=== PATIENT | male | born 1990 | race African-American/Black ===

== ENCOUNTER 2018-01-22 19:53 | Emergency (ER) | payer BC ==
[2018-01-22 20:40] VITALS: BP 133/88
[2018-01-22] MEDS ORDERED: LIDOCAINE 1% INJ (10 MG/ML) 10 ML MDV INJ ONE (21:17)
[2018-01-22] MEDS ORDERED: LIDOCAINE 1% INJ-PF (10 MG/ML) 30 ML SDV ONE (21:19)
--- NOTE | 2018-01-22 21:36 | ER Document Report ---
ED General - General Chief Complaint: Toe Injury Stated Complaint: TOE PAIN Time Seen by Provider: 01/22/18 20:57 TRAVEL OUTSIDE OF THE [place] IN LAST 30 DAYS: No - HPI Notes: 27-year-old male presents with left great toe pain for the past 2 weeks. He has frequent ingrown toenails. He kicked something 2 weeks ago and noticed he had a ingrown nail. He cut the majority of his toe out. He continues to have pain with mild purulent drainage. Denies fevers or chills. - Related Data Allergies/Adverse Reactions: No Known Allergies Allergy (Verified 09/10/14 02:19) Past Medical History - Social History Smoking Status: Current Every Day Smoker Chew tobacco use (# tins/day): No Frequency of alcohol use: Occasional Drug Abuse: None Family History: Arthritis Patient has suicidal ideation: No Patient has homicidal ideation: No Pulmonary Medical History: Reports: Hx Asthma Renal/ Medical History: Denies: Hx Peritoneal Dialysis - Immunizations Immunizations up to date: Yes Hx Diphtheria, Pertussis, Tetanus Vaccination: Yes - october 2008 Review of Systems - Review of Systems Constitutional: denies: Fever Musculoskeletal: Other - Left great toe pain Skin: denies: Change in color Physical Exam - Vital signs Vitals: Temp Pulse Resp BP Pulse Ox 98.9 F 68 16 133/88 H 99 01/22/18 20:39 01/22/18 20:39 01/22/18 20:39 01/22/18 20:39 01/22/18 20:39 - General General appearance: Appears well - Extremities Foot: Tender - Ingrown left great toenail without active drainage. Mild swelling - Skin Skin Temperature: Warm Skin Moisture: Dry Skin Color: Normal, [place] Course - Re-evaluation Re-evalutation: 01/22/18 21:32 Patient still has most inferior portion of nail in place causing continued tenderness with mild swelling. No active drainage. Base of nail removed and nail bed cauterized with significant improvement. Bulky dressing placed. At this time will discharge with return precautions and follow-up recommendations. Verbal discharge instructions given a the bedside and opportunity for questions given. Medication warnings reviewed. Patient is in agreement with this plan and has verbalized understanding of return precautions and the need for primary care follow-up in the next 24-72 hours. - Vital Signs Vital signs: Temp Pulse Resp BP Pulse Ox 98.9 F 68 16 133/88 H 99 01/22/18 20:39 01/22/18 20:39 01/22/18 20:39 01/22/18 20:39 01/22/18 20:39 Procedures - Nail Trephanation/Removal Left Great toe Nail Trepanation/Removal Location: Left great toenail Betadine prep applied: Yes Sterile Dressing Applied: No Notes: 01/22/18 21:35 Lateral aspect of the base of the left great nail removed with hemostats after digital block was performed using 1% lidocaine with good anesthesia. The nailbed was then cauterized with silver nitrate. Bulky dressing with antibiotic ointment applied Discharge - Discharge Clinical Impression: Ingrown toenail Condition: Good Disposition: HOME, SELF-CARE Additional Instructions: Keep bulky dressing in place. Return for signs of infection or other concerns. Ingrown Nail You have an ingrown nail. An ingrown nail develops when the tissues near the nail are pushed up over the nail. Irritation develops and infection follows. An ingrown nail can result from poorly fitting shoes, improper cutting of the nail, or minor injuries. Once the tissues at the edge of the nail swell, the problem can become chronic. Emergency treatment is usually removal of the portion of the nail that has become ingrown. This is followed by hot soaks three to four times a day. Antibiotics may be necessary if infection is present. After the toe heals, make certain there is no pressure on the area, either from shoes or another toe. Trim the toenails straight across, not curved back into the corners. If ingrown nails recur, an operation to remove excess tissue near the nail, or narrowing of the nail, may be necessary. Call the doctor or return if swelling increases, or red streaks, swelling, or swollen glands are found. Referrals: HIMANSHU PHELPS MD [ACTIVE STAFF] - Follow up as needed
== END 2018-01-22 21:50 | disposition home or self-care (01) ==
LOC: ER 19:53
PROC: 0HTRXZZ Resection of Toe Nail, External Approach (ICD-10-PCS; principal; 2018-01-22)
DX: L60.0 Ingrowing nail (principal); F17.200 Nicotine dependence, unspecified, uncomplicated
CPT/HCPCS: 99283

== ENCOUNTER 2018-10-03 22:22 | Emergency (ER) | payer BC ==
[2018-10-04 01:14] LABS: HEMOGLOBIN 15.3 g/dL (13.5-17.0); MEAN CORPUSCULAR HEMOGLOBIN 29.6 pg (27.0-33.4); MEAN CORPUSCULAR HGB CONC 34.1 g/dL (32.0-36.0); MEAN CORPUSCULAR VOLUME 87 fl (80-97); PLATELET COUNT 141 10^3/uL (150-450); RED BLOOD COUNT 5.18 10^6/uL (4.35-5.55); RED CELL DISTRIBUTION WIDTH 13.2 % (11.5-14.0)
[2018-10-04 01:33] LABS: ALANINE AMINOTRANSFERASE 37 U/L (21-72); ALBUMIN 4.2 g/dL (3.5-5.0); ALKALINE PHOSPHATASE 70 U/L (38-126); ANION GAP 7 (5-19); ASPARTATE AMINO TRANSFERASE 25 U/L (17-59); BILIRUBIN,DIRECT 0.3 mg/dL (0.0-0.4); BILIRUBIN,TOTAL 0.5 mg/dL (0.2-1.3); BLOOD UREA NITROGEN 11 mg/dL (7-20); CALCIUM 9.8 mg/dL (8.4-10.2); CARBON DIOXIDE 31 mmol/L (22-30); CHLORIDE 101 mmol/L (98-107); CREATINE KINASE 320 U/L (55-170); GLUCOSE 88 mg/dL (75-110); POTASSIUM 3.8 mmol/L (3.6-5.0); SODIUM 138.6 mmol/L (137-145); TOTAL PROTEIN 7.6 g/dL (6.3-8.2)
[2018-10-04 01:36] LABS: ABSOLUTE LYMPHOCYTES# (MANUAL) 0.7 10^3/uL (0.5-4.7); ABSOLUTE MONOCYTES # (MANUAL) 0.4 10^3/uL (0.1-1.4); ABSOLUTE NEUTROPHILS# (MANUAL) 0.8 10^3/uL (1.7-8.2); BASOPHILS % (MANUAL) 2 % (0-2); EOSINOPHILS % (MANUAL) 2 % (0-6); LYMPHOCYTES % (MANUAL) 34 % (13-45); MONOCYTES % (MANUAL) 20 % (3-13); SEGMENTED NEUTROPHILS % (MAN) 42 % (42-78); TOTAL CELLS COUNTED 50
[2018-10-04 01:37] LABS: OVALOCYTES 1+; PLATELET COMMENT ADEQUATE; POIKILOCYTOSIS 1+; TEAR DROP CELLS SLIGHT; TOXIC GRANULATION 1+
[2018-10-04 01:47] LABS: CREATINE KINASE MB 0.81 ng/mL (<4.55); TROPONIN I 0.019 ng/mL
--- NOTE | 2018-10-04 01:58 | ER Document Report ---
ED Cardiac - General Chief Complaint: Chest Pain Stated Complaint: CHEST PAIN Time Seen by Provider: 10/04/18 01:57 Mode of Arrival: Ambulatory Information source: Patient Notes: HISTORY OF PRESENT ILLNESS: Patient is a 28-year-old male with no significant past medical history who presents with headache, cough, and chest pain beginning 1 day ago but he believes is due to his allergies. Location: Head, chest Onset: 1 day ago Provocation: "My allergies" Quality: Tightness Radiation: None Severity: Mild Timing: Constant Associated symptoms: No fevers or chills, no shortness of breath, no swelling of extremities, no head injuries REVIEW OF SYSTEMS: CONSTITUTIONAL : Denies fever or chills, no sweats. Denies recent illness. EENT: Denies eye, ear, throat, or mouth pain or symptoms. Denies nasal or sinus congestion. CARDIOVASCULAR: Denies chest pain. RESPIRATORY: Positive for nonproductive. Denies shortness of breath, difficulty breathing, or wheezing. GASTROINTESTINAL: Denies abdominal pain. Denies nausea, vomiting, or diarrhea. Denies constipation. GENITOURINARY: Denies difficulty urinating, painful urination, burning, frequency, or blood in urine. MUSCULOSKELETAL: Denies neck or back pain or joint pain or swelling. SKIN: Denies rash or skin lesions. HEMATOLOGIC : Denies easy bruising or bleeding. LYMPHATIC: Denies swollen, enlarged glands. NEUROLOGICAL: Positive for headache. Denies altered mental status or loss of consciousness. Denies weakness or paralysis or loss of use of either side. Denies problems with gait or speech. Denies sensory or motor loss. PSYCHIATRIC: Denies anxiety or stress or depression. All other systems reviewed and negative. PHYSICAL EXAMINATION: GENERAL: Well-appearing, well-nourished and in no acute distress. HEAD: Atraumatic, normocephalic. No scalp deformity, depression, or crepitance. EYES: Pupils are 3 mm and equal/round/reactive to light, extraocular movements intact, sclera anicteric, conjunctiva are normal. ENT: Nares patent bilaterally, oropharynx clear without exudates or palatal petechia. Moist mucous membranes. No tonsil hypertrophy. NECK: Normal range of motion, supple without lymphadenopathy. LUNGS: Breath sounds present, equal, and clear to auscultation bilaterally. No wheezes, rales, or rhonchi. HEART: Regular rate and rhythm without murmurs, rubs, or gallops. 2+ peripheral pulses. Normal capillary refill. ABDOMEN: Soft, nontender, nondistended. Normoactive bowel sounds. No guarding, no rebound. No masses appreciated. BACK: Normal contour, no midline tenderness. Rectal exam deferred. GENITAL: Deferred. EXTREMITIES: Normal range of motion, no pitting or edema. No cyanosis. NEUROLOGICAL: No focal neurological deficits. Moves all extremities spontaneously and on command. PSYCH: Normal mood, normal affect. No suicidal thoughts/ideations. No homocidal thoughts/ideations. No hallucinations. SKIN: Warm, dry, normal turgor, no rashes or lesions noted. ASSESSMENT AND PLAN: This patient is a 28-year-old male who presents with headache and cough that is most likely viral syndrome. 1. Will obtain labs, urine, cardiac enzymes, chest x-ray, and reassess. 2. Will give IV Toradol. TRAVEL OUTSIDE OF THE [place] IN LAST 30 DAYS: No - Related Data Allergies/Adverse Reactions: No Known Allergies Allergy (Verified 09/10/14 02:19) Past Medical History - General Information source: Patient - Social History Smoking Status: Current Every Day Smoker Chew tobacco use (# tins/day): No Frequency of alcohol use: Social Drug Abuse: None Lives with: Family Family History: Arthritis Patient has suicidal ideation: No Patient has homicidal ideation: No - Past Medical History Cardiac Medical History: Reports: None Pulmonary Medical History: Reports: Hx Asthma EENT Medical History: Reports: None Neurological Medical History: Reports: None Endocrine Medical History: Reports: None Renal/ Medical History: Reports: None. Denies: Hx Peritoneal Dialysis Malignancy Medical History: Reports None GI Medical History: Reports: None Musculoskeletal Medical History: Reports None Skin Medical History: Reports None Psychiatric Medical History: Reports: None Traumatic Medical History: Reports: None Infectious Medical History: Reports: None Surgical Hx: Negative Past Surgical History: Reports: None - Immunizations Immunizations up to date: Yes Hx Diphtheria, Pertussis, Tetanus Vaccination: Yes - october 2008 Physical Exam - Vital signs Vitals: Temp Pulse Resp BP Pulse Ox 98.8 F 63 16 142/76 H 100 10/03/18 22:48 10/03/18 22:48 10/03/18 22:48 10/03/18 22:48 10/03/18 22:48 Course - Vital Signs Vital signs: Temp Pulse Resp BP Pulse Ox 98.8 F 63 16 142/76 H 100 10/03/18 22:48 10/03/18 22:48 10/03/18 22:48 10/03/18 22:48 10/03/18 22:48 - Laboratory Result Diagrams: 10/04/18 01:05 10/04/18 01:05 Laboratory results interpreted by me: 10/04/18 10/04/18 10/04/18 01:05 01:05 01:55 WBC 2.0 L Plt Count 141 L Monocytes % (Manual) 20 H Abs Neuts (Manual) 0.8 L Carbon Dioxide 31 H Creatine Kinase 320 H Urine Urobilinogen 2.0 H Urine Ascorbic Acid 40 H - Diagnostic Test Radiology reviewed: Image reviewed, Reports reviewed - EKG Interpretation by Me EKG shows normal: Sinus rhythm Rate: Normal Rhythm: NSR [place]/QRS: No: Right axis deviation, Left axis deviation, RBBB, LBBB, IVCD, LAHB/LAFB, LPHB/LPFB, Bifasicular block Voltage: No: Increased voltage, Consistant with LVH, Decreased voltage, Throughout, Limb leads P Waves: No: FRANNIE, LAE, Absent, AV Dissociation, Other Heart block present: No: 1st Degree, Mobitz 1, Mobitz 2, CHB (3rd degree block) When compared to previous EKG there are: Previous EKG unavailable Discharge - Discharge Clinical Impression: Viral syndrome Condition: Good Disposition: HOME, SELF-CARE Instructions: Viral Syndrome ([facility]) Additional Instructions: You have been evaluated in the Emergency Department for headache and chest pain that is most likely related to either allergies or a virus. While here, you had blood work and a chest x-ray that were normal and it is now safe to be discharged home. Please follow-up with your primary physician as instructed in 1 week to be rechecked. Return to the Emergency Department if you experience difficulty breathing, worsening pain, vision changes, difficulty walking, or any other concerning symptoms. Prescriptions: Diclofenac Sodium 75 mg PO BID #60 tablet.dr Forms: Return to Work Print Language: Yakut
[2018-10-04 02:14] LABS: APPEARANCE,URINE CLEAR; BILIRUBIN,URINE NEGATIVE (NEGATIVE); COLOR,URINE YELLOW; GLUCOSE, URINE NEGATIVE (NEGATIVE); KETONES,URINE NEGATIVE (NEGATIVE); LEUKOCYTE ESTERASE,URINE NEGATIVE (NEGATIVE); NITRITE,URINE NEGATIVE (NEGATIVE); PROTEIN,URINE NEGATIVE (NEGATIVE); URINE SPECIFIC GRAVITY 1.025
[2018-10-04] MEDS ORDERED: KETOROLAC TROMETHAMINE INJ/PF 30 MG/1 ML SDV IV ONE (02:56)
--- NOTE | 2018-10-04 03:25 | RADIOLOGY REPORT (SQ) ---
EXAM DESCRIPTION: XR CHEST 1 VIEW COMPLETED DATE/TME: 10/04/2018 02:55 CLINICAL HISTORY: 28 years, Male, Chest pain Comparison: None FINDINGS: No focal lung consolidation. No pleural effusion. No pneumothorax. Cardiac and mediastinal silhouette is unremarkable. No acute osseous abnormality. Soft tissues are unremarkable. IMPRESSION: No acute findings. No focal lung consolidation.
[2018-10-04 03:51] VITALS: BP 132/75
--- NOTE | 2018-10-04 07:50 | EKG REPORT ---
SEVERITY:- ABNORMAL ECG - SINUS RHYTHM ABNORMAL Q SUGGESTS ANTERIOR INFARCT NONSPECIFIC T ABNORMALITIES, INFERIOR LEADS POOR R WAVE PROGRESSION ANTERIOR LEADS. : Confirmed by: Tito Cuevas MD 04-Oct-2018 07:49:23
[2018-10-04 13:40] LABS: PATH REVIEW PATHOLOGIST REVIEWED
== END 2018-10-04 03:51 | disposition home or self-care (01) ==
LOC: ER 22:22
DX: B34.9 Viral infection, unspecified (principal); R07.9 Chest pain, unspecified; R51 Headache; R05 Cough; F17.200 Nicotine dependence, unspecified, uncomplicated
CPT/HCPCS: 93005; 99284; 96374; 36415; 82553; 82550; 85025; 80053; 81001; 84484; 71045; 93010; J1885

== ENCOUNTER 2019-04-06 20:48 | Emergency (ER) | payer BC, OTHER ==
[2019-04-06] MEDS ORDERED: KETOROLAC TROMETHAMINE 60 MG/2 ML SDV IM ONE (21:34)
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
[2019-04-06 23:31] VITALS: BP 132/78
== END 2019-04-06 23:27 | disposition home or self-care (01) ==
LOC: ER 20:48
DX: S20.212A Contusion of left front wall of thorax, initial encounter (principal); S40.012A Contusion of left shoulder, initial encounter; S20.229A Contusion of unspecified back wall of thorax, initial encounter; R07.81 Pleurodynia; M54.5 Low back pain; V49.40XA Driver injured in collision with unspecified motor vehicles in traffic accident, initial encounter
CPT/HCPCS: 71046; 72110; 73030; J1885

== ENCOUNTER 2020-04-25 20:53 | Emergency (ER) | payer OTHER ==
[2020-04-25] MEDS ORDERED: TETRACAINE HCL 0.5% OPH SOLN 4 ML OD ONE (22:01)
[2020-04-25] MEDS ORDERED: DIPH/PERTUSS(ACELL)/TETANUS VAC/PF 0.5 ML SYR (>=10YO) IM ONE (22:03)
--- NOTE | 2020-04-25 22:03 | ER Document Report ---
ED Medical Screen (RME) - General Stated Complaint: EYE INJURY POSSIBLE FOREIGN OBJECT Time Seen by Provider: 04/25/20 21:58 TRAVEL OUTSIDE OF THE [place] IN LAST 30 DAYS: No - HPI Notes: 04/25/20 22:02 29-year-old male to the emergency department with complaints of right eye pain that began around 3:00 this afternoon. He states that he thinks that either a piece of metal or piece of dirt fell into his eye. He has photophobia. He has tearing. He states he can open his eyes without having a lot of pain. He states that he is not up-to-date on his tetanus shot. He denies any other symptoms. He supposed to be wearing contacts and glasses but he has not been. I performed a brief medical screening exam on the patient determined that the patient needs further evaluation and management by main side provider. I have placed initial orders to help expedite care. - Related Data Allergies/Adverse Reactions: No Known Allergies Allergy (Verified 09/10/14 02:19) Past Medical History Pulmonary Medical History: Reports: Hx Asthma Renal/ Medical History: Denies: Hx Peritoneal Dialysis - Immunizations Immunizations up to date: Yes Hx Diphtheria, Pertussis, Tetanus Vaccination: Yes - october 2008 Physical Exam - Vital signs Vitals: Temp Pulse Resp BP Pulse Ox 98.2 F 55 L 20 151/87 H 99 04/25/20 21:29 04/25/20 21:29 04/25/20 21:29 04/25/20 21:29 04/25/20 21:29 Course - Vital Signs Vital signs: Temp Pulse Resp BP Pulse Ox 98.2 F 55 L 20 151/87 H 99 04/25/20 21:29 04/25/20 21:29 04/25/20 21:29 04/25/20 21:29 04/25/20 21:29
[2020-04-26] MEDS ORDERED: TETRACAINE HCL 0.5% OPH SOLN 4 ML ONE (00:51)
[2020-04-26] MEDS ORDERED: OXYCODONE-ACETAMINOPHEN 5-325 MG TABLET PO ONE (00:58)
[2020-04-26] MEDS ORDERED: ERYTHROMYCIN 0.5% OPH OINTMENT 3.5 GM TUBE OD ONE (00:58)
--- NOTE | 2020-04-26 01:06 | ER Document Report ---
ED General - General Chief Complaint: Foreign Body in Eye Stated Complaint: EYE INJURY POSSIBLE FOREIGN OBJECT Time Seen by Provider: 04/25/20 21:58 Notes: CHIEF COMPLAINT: Right eye pain HPI: 29-year-old male presenting for evaluation of right eye pain with opening of the eye. Patient felt like dirt or something dropped into the eye at work today and he rubbed the eye then had immediate pain with opening the eye. Reports tearing and some blurred vision secondary to pain. Denies other injuries or complaints. ROS: See HPI - all other systems were reviewed and are otherwise negative Constitutional: no fever Eyes: Positive tearing drainage, + blurred vision ENT: no runny nose, no sore throat Integumentary: no rash Allergy: no hives MEDICATIONS: I agree with the patient medications as charted by the RN. ALLERGIES: I agree with the allergies as charted by the RN. PAST MEDICAL HISTORY/PAST SURGICAL HISTORY: Reviewed and agree as charted by RN. SOCIAL HISTORY: Reviewed and agree as charted by RN. FAMILY HISTORY: No significant familial comorbid conditions directly related to patient complaint EXAM: Reviewed vital signs as charted by RN. CONSTITUTIONAL: Alert and oriented and responds appropriately to questions. Well-appearing; well-nourished HEAD: Normocephalic; atraumatic EYES: PERRL; Conjunctivae injected right eye, sclerae non-icteric. Slight soft tissue swelling to the upper right eyelid secondary likely to rubbing at the eye. There is a corneal abrasion centrally over the iris of the right eye measuring approximately 8 mm in length 3 mm in diameter. Negative Kolby sign. This was noted on wood lamp exam with fluorescein stain. No visible foreign bodies under the upper or lower lids. No hyphema. Funduscopic exam reveals no evidence of disc edema or hemorrhage. ENT: normal nose; no rhinorrhea; moist mucous membranes; pharynx without lesions noted, no uvula edema or deviation, no tonsillar hypertrophy, phonation normal NECK: Supple without meningismus; non-tender; no cervical lymphadenopathy, no masses CARD: Capillary refill less than 3 seconds RESP: Normal chest excursion without splinting or tachypnea ABD/GI: non-distended BACK: The back appears normal EXT: Normal ROM in all joints; no cyanosis, no effusions, no edema SKIN: Normal color for age and race; warm; dry; good turgor NEURO: Moves all extremities equally; Motor and sensory function intact PSYCH: The patient's mood and manner are appropriate. Grooming and personal hygiene are appropriate. MDM: 29-year-old male with what appears to be a corneal abrasion in the right eye. Will update tetanus status. Place patient on pain medication, erythromycin ointment, ophthalmology follow-up TRAVEL OUTSIDE OF THE [place] IN LAST 30 DAYS: No - Related Data Allergies/Adverse Reactions: No Known Allergies Allergy (Verified 09/10/14 02:19) Past Medical History - Social History Smoking Status: Current Every Day Smoker Family History: Arthritis Pulmonary Medical History: Reports: Hx Asthma Renal/ Medical History: Denies: Hx Peritoneal Dialysis - Immunizations Immunizations up to date: Yes Hx Diphtheria, Pertussis, Tetanus Vaccination: Yes - october 2008 Physical Exam - Vital signs Vitals: Temp Pulse Resp BP Pulse Ox 98.2 F 55 L 20 151/87 H 99 04/25/20 21:29 04/25/20 21:29 04/25/20 21:29 04/25/20 21:29 04/25/20 21:29 Course - Vital Signs Vital signs: Temp Pulse Resp BP Pulse Ox 98.2 F 55 L 20 151/87 H 99 04/25/20 21:29 04/25/20 21:29 04/25/20 21:29 04/25/20 21:29 04/25/20 21:29 Discharge - Discharge Clinical Impression: Corneal abrasion, right Qualifiers: Encounter type: initial encounter Qualified Code(s): S05.01XA - Injury of conjunctiva and corneal abrasion without foreign body, right eye, initial encounter Condition: Stable Disposition: HOME, SELF-CARE Additional Instructions: 1. make sure to follow up closely with Ophthalmology for further evaluation and treatment 2. medications as prescribed, no driving on narcotics. 3. return for any worsening pain, visual change or loss Prescriptions: Erythromycin Base [Erythromycin Oph 1 Gm Oint Ud] 1 applic OD BID 5 Days #1 tube Ibuprofen [Motrin 600 Mg Tablet] 600 mg PO Q6H #15 tablet Oxycodone HCl/Acetaminophen [Percocet 5-325 mg Tablet] 1 tab PO Q4H PRN #15 tab PRN Reason: Forms: Return to Work Referrals: CINDY CROCKETT MD [ACTIVE STAFF] - Follow up as needed
[2020-04-26] MEDS ORDERED: TETRACAINE HCL 0.5% OPH SOLN 4 ML OD ONE (01:15)
[2020-04-26] MEDS ORDERED: DIPH/PERTUSS(ACELL)/TETANUS VAC/PF 0.5 ML SYR (>=10YO) IM ONE (01:15)
[2020-04-26] MEDS ORDERED: POLYMYXIN B SULFATE/TMP OPH SOLN (10 ML/ER DISP) OD ONE (01:58)
[2020-04-26 02:32] VITALS: BP 143/81
== END 2020-04-26 02:00 | disposition home or self-care (01) ==
LOC: ER 20:53
DX: S05.01XA Injury of conjunctiva and corneal abrasion without foreign body, right eye, initial encounter (principal); X58.XXXA Exposure to other specified factors, initial encounter; Y99.0 Civilian activity done for income or pay; F17.200 Nicotine dependence, unspecified, uncomplicated; Z23 Encounter for immunization
CPT/HCPCS: 99284; 96372; 90715; J3490 ×2